=== PATIENT | male | born 1980 | race Two or more races ===

== ENCOUNTER 2022-02-01 10:52 | Emergency (ER) | payer SELFPAY ==
[2022-02-01] MEDS ORDERED: ONDANSETRON HCL 4 MG/2 ML VIAL IV ONE (11:45)
[2022-02-01] MEDS ORDERED: KETOROLAC TROMETH 30 MG/ML 1ML VIAL IV ONE ×2 (11:45)
[2022-02-01] MEDS ORDERED: SODIUM CHLORIDE 0.9% 1,000 ML IV ONE ×2 (11:45→14:00)
[2022-02-01 12:02] LABS: Urine Amorphous Crystal FEW /hpf (None Seen); Urine Bacteria NONE SEEN /hpf (None Seen); Urine Blood Negative /uL (Negative); Urine Mucus FEW (None Seen); Urine Specific Gravity 1.026 (1.001-1.035); Urine WBC 11 /hpf (0 - 3)
[2022-02-01 12:03] LABS: Basophils # (auto) 0.1 10 ^3/uL (0-0.2); Eosinophils # (auto) 0.2 10 ^3/uL (0-0.8); Eosinophils % (auto) 2.9 % (0.0-7.0); Hemoglobin 15.1 g/dL (13.5-17.5); Lymphocytes # (auto) 2.3 10 ^3/uL (0.4-5.4); Lymphocytes % (auto) 31.2 % (10.0-50.0); Mean Corpuscular Hemoglobin 31.4 pg (28.0-32.0); Mean Corpuscular Hgb Conc. 33.6 g/dL (32.0-36.0); Mean Corpuscular Volume 93.5 fL (80.0-100.0); Monocytes # (auto) 0.6 10 ^3/uL (0-1.3); Monocytes % (auto) 8.7 % (0.0-12.0); Neutrophils # (auto) 4.1 10 ^3/uL (1.6-8.6); Neutrophils % (auto) 56.2 % (37.0-80.0); Nucleated Red Blood Cells % 0.1 %; Red Blood Cells 4.82 10^6/uL (4.5-5.90); Red Cell Distribution Width 13.6 % (11.8-14.3); White Blood Cell 7.3 10^3/uL (4.4-10.8)
[2022-02-01 12:23] LABS: Albumin 3.8 g/dL (3.4-5.0); BUN/Creatinine Ratio 16.8; Calcium 8.8 mg/dL (8.5-10.1); Potassium 4.3 mmol/L (3.5-5.1)
[2022-02-01 12:25] LABS: Bilirubin, Total 0.6 mg/dL (0.2-1.0); Total Protein 7.1 g/dL (6.4-8.2)
[2022-02-01] MEDS ORDERED: MORPHINE SULFATE 4 MG/ML SYR/VIAL IV ONE (13:15)
[2022-02-01 14:51] VITALS: BP 107/61
[2022-02-01] MEDS ORDERED: TRAM-297 PO (15:02)
[2022-02-01] MEDS ORDERED: TAM04C PO (15:02)
== END 2022-02-01 15:07 | disposition home or self-care (01) ==
LOC: ER 10:52
DX: N20.0 Calculus of kidney (principal); F17.210 Nicotine dependence, cigarettes, uncomplicated; F12.10 Cannabis abuse, uncomplicated
CPT/HCPCS: 36415; 74176; 80053; 81001; 85025; 96361; 96374; 96375; 99284; J1885; J2270; J2405; J7030

== ENCOUNTER 2024-08-01 12:37 | Inpatient (IN) | payer BC, OTHER ==
[~2024-08-01] VITALS: Ht 180.3 cm; Wt 75.8 kg
[~2024-08-01 12:37] MED LIST: TAMS-35 PO; TRAM-297 PO
--- NOTE | 2024-08-01 13:17 | ED.PDOC ---
History of Present Illness HPI Comments 43M presents to the ER w/ no prior Hx associated to the c/c of of left sided numbness. Pt reports that he woke up at 0500 w/ vertigo and fell out of the bed and went to the bathroom due from him not feeling well. PMHx of Eczema and Ortho Sx. Denies chills, fever, N/V/D, SOB, CP or other associated symptoms, modifiers or recent injuries or sick contact at this time. Chief Complaint: Left Sided Weakness Time Seen by MD: 12:35 Primary Care Provider: NONE Reviewed Notes: Nurses Notes, Medications, Allergies Allergies: Coded Allergies: NO KNOWN ALLERGIES (Unverified , 08/01/24) Home Meds Active Scripts Tramadol Hcl (Ultram) 50 Mg Tab, 50 MG PO TID, #20 TAB Prov:MAYKEL DUMONT 02/01/22 Tamsulosin Hcl (Flomax) 0.4 Mg Cap, 0.4 MG PO DAILY, #20 CAP Prov:MAYKEL DUMONT 02/01/22 Information Source: Patient, Friend Mode of Arrival: Wheelchair Severity: Moderate Timing: Hours Duration: Since onset, Hours Prehospital treatment: None Past Medical History PAST MEDICAL HISTORY: Kidney Stones Past Medical History (Other): Eczema Surgical History (Other): Ortho Sx Family History Family History: Reviewed,noncontributory to illness, Unknown Social History Smoker: Non-Smoker Alcohol: Denies ETOH Use Drugs: Denies Drug Use Lives In: Home Constitutional: denies: chills, diaphoresis, fatigue, fever, malaise, sweats, weakness, others EENTM: denies: blurred vision, double vision, ear bleeding, ear discharge, ear drainage, ear pain, ear ringing, eye pain, eye redness, hearing loss, mouth pain, mouth swelling, nasal discharge, nose bleeding, nose congestion, nose pain, photophobia, tearing, throat pain, throat swelling, voice changes, others Respiratory: denies: cough, hemoptysis, orthopnea, SOB at rest, shortness of breath, SOB with excertion, stridor, wheezing, others Cardiovascular: denies: chest pain, dizzy spells, diaphoresis, Dyspnea on exertion, edema, irregular heart beat, left arm pain, lightheadedness, palpitations, PND, syncope, others Gastrointestinal: denies: abdomen distended, abdominal pain, blood streaked bowels, constipated, diarrhea, dysphagia, difficulty swallowing, hematemesis, melena, nausea, poor appetite, poor fluid intake, rectal bleeding, rectal pain, vomiting, others Genitourinary: denies: burning, dysuria, flank pain, frequency, hematuria, incontinence, penile discharge, penile sore, pain, testicle pain, testicle sw elling, urgency, others Neurological: reports: dizziness, left sided numbness; denies: fainting, headache, left sided weakness, numbness, paresthesia, pre-existing deficit, right sided numbness, right sided weakness, seizure, speech problems, tingling, tremors, weakness, others Musculoskeletal: denies: back pain, gout, joint pain, joint swelling, muscle pain, muscle stiffness, neck pain, others Integumetry: denies: bruises, change in color, change in hair/nails, dryness, laceration, lesions, lumps, rash, wounds, others Allergic/Immunocompromised: denies: Difficulty Healing, Frequent Infections, Hives, Itching, others Hematologic/Lymphatic: denies: anemia, blood clots, easy bleeding, easy bruising, swollen glands, others Endocrine: denies: excessive hunger, excessive sweating, excessive thirst, excessive urination, flushing, intolerance to cold, intolerance to heat, unexplained weight gain, unexplained weight loss, others Psychiatric: denies: anxiety, bipolar disorder, depression, hopeless, panic disorder, schizophrenia, sleepless, suicidal, others All Other Systems: Reviewed and Negative Physical Exam General Appearance: No Apparent Distress, Normal HEENT: Normal ENT Inspection, Pharynx Normal, TMs Normal Neck: Full Range of Motion, Non-Tender, Normal, Normal Inspection Respiratory: Chest Non-Tender, Lungs Clear, No Accessory Muscle Use, No Respiratory Distress, Normal Breath Sounds Cardiovascular: No Edema, No JVD, No Murmur, No Gallop, Normal Peripheral Pulses, Regular Rate/Rhythm Breast Exam: Deferred Gastrointestinal: No Organomegaly, Non Tender, No Pulsatile Mass, Normal Bowel Sounds, Soft Genitalia: Deferred Pelvic: Deferred Rectal: Deferred Extremities: No calf tenderness, Normal capillary refill, Normal inspection, Normal range of motion, Non-tender, No pedal edema Musculoskeletal : Apperance: Normal Neurologic: Alert, golf course laborer II-XII nml as Tested, No Motor Deficits, Normal Affect, Normal Mood, No Sensory Deficits Cerebellar Function: Normal Reflexes: Normal Skin: Dry, Normal Color, Warm Lymphatic: No Adenopathy Was a procedure done? Was a procedure done?: No Differential Dx Considerations may include: CVA, TIA, mass occupying lesion, mononeuropathy X-Ray, Labs, Meds, VS Vital Signs Date Time Temp Pulse Resp B/P (MAP) Pulse Ox O2 Delivery O2 Flow Rate FiO2 08/01/24 15:23 75 16 93/63 (73) 97 08/01/24 12:50 98.5 79 17 115/76 (89) 100 08/01/24 12:44 75 Lab Test 08/01/24 14:24 08/01/24 13:19 08/01/24 12:41 Range/Units Troponin I High Sensitivity 3 L 3 L </=54 ng/L White Blood Count 11.1 H 4.4-10.8 10^3/uL Red Blood Count 5.07 4.5-5.90 10^6/uL Hemoglobin 15.7 13.5-17.5 g/dL Hematocrit 46.2 41.0-53.0 % Mean Corpuscular Volume 91.1 80.0-100.0 fL Mean Corpuscular Hemoglobin 31.0 28.0-32.0 pg Mean Corpuscular Hemoglobin Concent 34.1 32.0-36.0 g/dL Red Cell Distribution Width 13.7 11.8-14.3 % Platelet Count 230 140-450 10^3/uL Mean Platelet Volume 8.3 6.9-10.8 fL Neutrophils (%) (Auto) 81.8 H 37.0-80.0 % Lymphocytes (%) (Auto) 13.3 10.0-50.0 % Monocytes (%) (Auto) 4.1 0.0-12.0 % Eosinophils (%) (Auto) 0.4 0.0-7.0 % Basophils (%) (Auto) 0.4 0.0-2.0 % Neutrophils # (Auto) 9.1 H 1.6-8.6 10 ^3/uL Lymphocytes # (Auto) 1.5 0.4-5.4 10 ^3/uL Monocytes # (Auto) 0.5 0-1.3 10 ^3/uL Eosinophils # (Auto) 0 0-0.8 10 ^3/uL Basophils # (Auto) 0 0-0.2 10 ^3/uL Nucleated Red Blood Cells 0.1 % Prothrombin Time 10.5 9.3-11.8 sec Prothrombin Time INR 0.97 0.9-1.15 Activated Partial Thromboplast Time 28.9 24.5-34.5 SEC Sodium Level 141 136-145 mmol/L Potassium Level 3.8 3.5-5.1 mmol/L Chloride Level 108 H 98-107 mmol/L Carbon Dioxide Level 24 20-31 mmol/L Anion Gap 9 5-15 Blood Urea Nitrogen 18 9-23 mg/dL Creatinine 0.93 0.700-1.30 mg/dL Glomerular Filtration Rate Calc 104 >90 mL/min BUN/Creatinine Ratio 19.4 10.0-20.0 Serum Glucose 116 H 74-106 mg/dL Calcium Level 10.1 8.7-10.4 mg/dL Magnesium Level 1.7 1.6-2.6 mg/dL Total Bilirubin 0.7 0.2-1.0 mg/dL Aspartate Amino Transferase (AST) 21 13-40 U/L Alanine Aminotransferase (ALT) 23 7-40 U/L Alkaline Phosphatase 66 46-116 U/L B-Type Natriuretic Peptide 14.38 0-100 pg/mL Total Protein 7.3 5.7-8.2 g/dL Albumin 4.5 3.2-4.8 g/dL POC Glucose 117 H 70-106 mg/dl X-Ray, Labs, Meds, VS Comment This is a 43-year-old gentleman who comes in with symptoms consistent with CVA with left hemiparesis. Since his last well-known time was approximately 5:00 a.m., patient is not a candidate for thrombolytics. His blood pressure was not controlled due to permissive hypertension. I recommended hospitalization. He agreed. Time of 1ST Reevaluation: 13:05 Reevaluation 1ST: Unchanged Patient Education/Counseling: Diagnosis, Treatment, Prognosis Family Education/Counseling: Diagnosis, Treatment, Prognosis Departure 1 Departure Time of Disposition: 17:10 Impression: Primary Impression: Acute CVA (cerebrovascular accident) Disposition: 09 ADMITTED INPATIENT Admit to: Tele Condition: Fair Critical Care Note Critical Care Time?: Yes (45 min-critical care time only) Critical care comment: CRITICAL CARE TIME: 45 minutes Treatments/Evaluations: Close monitoring and treatment of unstable vital signs, cardiorespiratory, and neurologic status, while maintaining tight balance of fluid, respiratory, and cardiac interventions. This time includes discussing the case with the patient and the patients family. This time does not include all procedures stated elsewhere in this record. This time also includes reviewing old records, labs and radiological studies. This time includes examining and re- examining the patient. Additionally, this time also includes arranging care with admitting and consulting physicians. Stability Stability form required: No Heart Score Heart Score: Heart Score Response (Comments) Value History N/A 0 EKG N/A 0 Age N/A 0 Risk Factors N/A 0 Troponin N/A 0 Total 0 I personally scribed for JEFFRY SHEPHERD MD ([email or web address]) on 08/01/24 at 13:17. Electronically submitted by Jaguar Thompson ([email or web address]). JEFFRY SHEPHERD MD Aug 01, 2024 13:17
--- NOTE | 2024-08-01 13:27 | DVH ---
CLINICAL INFORMATION: 43 years old, Male; left sided numbness. TECHNIQUE: Axial imaging was obtained through the brain without contrast. Coronal and sagittal refor matted images were obtained, reviewed, and stored. Images were reviewed in brain and bone windows. A ll CT scans at this medical facility are performed using dose modulation techniques as appropriate to a performed exam including the following: Automated exposure control was utilized; adjustment of the MA and/or KV according to patient size; and use of iterative reconstruction technique. CTDIvol = 53.73 mGy DLP = 970.56 mGy-cm COMPARISON: None FINDINGS: There is no acute intracranial hemorrhage or extraaxial fluid collection. No mass effect o r midline shift. The ventricles and sulci are within normal limits in size for age. Basal cisterns a re patent. The calvarium is unremarkable. Paranasal sinuses and mastoid air cells are clear. IMPRESSION: 1. No acute intracranial hemorrhage. 2. No CT evidence of acute intracranial abnormality.
[2024-08-01 13:58] LABS: Basophils # (auto) 0 10 ^3/uL (0-0.2); Basophils % (auto) 0.4 % (0.0-2.0); Eosinophils # (auto) 0 10 ^3/uL (0-0.8); Eosinophils % (auto) 0.4 % (0.0-7.0); Hematocrit 46.2 % (41.0-53.0); Hemoglobin 15.7 g/dL (13.5-17.5); Lymphocytes # (auto) 1.5 10 ^3/uL (0.4-5.4); Lymphocytes % (auto) 13.3 % (10.0-50.0); Mean Corpuscular Hgb Conc. 34.1 g/dL (32.0-36.0); Mean Corpuscular Volume 91.1 fL (80.0-100.0); Monocytes # (auto) 0.5 10 ^3/uL (0-1.3); Monocytes % (auto) 4.1 % (0.0-12.0); Neutrophils # (auto) 9.1 10 ^3/uL (1.6-8.6); Neutrophils % (auto) 81.8 % (37.0-80.0); Nucleated Red Blood Cells % 0.1 %; Platelet Count (auto) 230 10^3/uL (140-450); Red Blood Cells 5.07 10^6/uL (4.5-5.90); Red Cell Distribution Width 13.7 % (11.8-14.3); White Blood Cell 11.1 10^3/uL (4.4-10.8)
[2024-08-01 14:11] LABS: Alanine Aminotransferase 23 U/L (7-40); Albumin 4.5 g/dL (3.2-4.8); Alkaline Phosphatase 66 U/L (46-116); Anion Gap 9 (5-15); Aspartate Aminotransferase 21 U/L (13-40); BUN/Creatinine Ratio 19.4 (10.0-20.0); Blood Urea Nitrogen 18 mg/dL (9-23); Calcium 10.1 mg/dL (8.7-10.4); Carbon Dioxide 24 mmol/L (20-31); Magnesium 1.7 mg/dL (1.6-2.6); Potassium 3.8 mmol/L (3.5-5.1); Sodium 141 mmol/L (136-145)
[2024-08-01 14:12] LABS: Bilirubin, Total 0.7 mg/dL (0.2-1.0); Total Protein 7.3 g/dL (5.7-8.2)
--- NOTE | 2024-08-01 14:12 | DVH ---
CHEST RADIOGRAPH Indication: left sided numbness Technique: Single frontal view of the chest was obtained Comparison: None FINDINGS: Lines and Tubes: None Lungs: No focal consolidation. Mild hyperinflation of the lungs. 7 mm nodular density of the left low er lung zone. Pleura: No effusion. No pneumothorax. Cardiomediastinal contours: Unremarkable Bones: No acute osseous abnormality. IMPRESSION: No acute cardiopulmonary disease. 7 mm nodular density of the left lower lung zone. Non emergent CT chest should be considered for furt her evaluation
[2024-08-01 14:23] LABS: INR 0.97 (0.9-1.15); Partial Thromboplastin Time 28.9 SEC (24.5-34.5); Prothrombin Time 10.5 sec (9.3-11.8)
[2024-08-01 14:31] LABS: Chloride 108 mmol/L (98-107); Glucose 116 mg/dL (74-106)
[2024-08-01] MEDS: ASPirin 325 MG TAB PO ONE (15:58)
--- NOTE | 2024-08-01 17:04 | ECG ---
[facility] Test Date: 2024-08-01 Test Time: 12:44:47 Pat Name: SURI HALL Department: ER Room: Gender: M Delinquent Notice Machine Operator: RICHELLE : 1980 Requested By: JEFFRY SHEPHERD Order Number: [id number] Reading MD: Measurements Intervals [place] Rate: 75 P: 0 ND: 0 QRS: 59 QRSD: 106 T: 44 QT: 407 QTc: 455 Interpretive Statements Atrial fibrillation Anteroseptal infarct, old ST elevation, consider inferior injury Artifact in lead(s) I,II,III,aVR,aVL,aVF,V1,V2,V3,V4,V5,V6 Please click the below link to view image of tracing.
[2024-08-01 19:33] VITALS: BP 99/62; PULSE 78; RESP 20; TEMP 98.3; O2SAT 99
--- NOTE | 2024-08-01 20:13 | DVHINCON2 ---
Date of service: Aug 01, [address] Culp Reason for Consultation Left-sided numbness History of Present Illness 08/01/24 43M presents to the ER w/ no prior Hx associated to the c/c of of left sided numbness. Pt reports that he woke up at 0500 w/ vertigo and fell out of the bed and went to the bathroom due from him not feeling well. PMHx of Eczema and Ortho Sx. Denies chills, fever, N/V/D, SOB, CP or other associated symptoms, modifiers or recent injuries or sick contact at this time. Chief Complaint: Left Sided Weakness WBC/HB/PLT/MCV, , 11.1/515.7/230/91.1 CMP, 08/01/2024: Unremarkable CT head, 08/01/2024: 1. No acute intracranial hemorrhage. 2. No CT evidence of acute intracranial abnormality Kidney Stones Eczema Ortho Sx Reviewed,noncontributory to illness, Unknown Smoker: Non-Smoker Alcohol: Denies ETOH Use Drugs: Denies Drug Use Lives In: Home Allergies: Coded Allergies: NO KNOWN ALLERGIES (Unverified , 08/01/24) Home Meds Active Scripts Tramadol Hcl (Ultram) 50 Mg Tab, 50 MG PO TID, #20 TAB Prov:MAYKEL DUMONT 02/01/22 Tamsulosin Hcl (Flomax) 0.4 Mg Cap, 0.4 MG PO DAILY, #20 CAP Prov:MAYKEL DUMONT 02/01/22 Vital Signs Vital Signs Date Time Temp Pulse Resp B/P (MAP) Pulse Ox O2 Delivery O2 Flow Rate FiO2 08/01/24 19:33 98.3 78 20 99/62 (74) 99 98.3 08/01/24 19:31 Room Air Labs/Diagnostic Data Labs Test 08/01/24 14:24 08/01/24 13:19 08/01/24 12:41 Range/Units Troponin I High Sensitivity 3 L </=54 ng/L White Blood Count 11.1 H 4.4-10.8 10^3/uL Red Blood Count 5.07 4.5-5.90 10^6/uL Hemoglobin 15.7 13.5-17.5 g/dL Hematocrit 46.2 41.0-53.0 % Mean Corpuscular Volume 91.1 80.0-100.0 fL Mean Corpuscular Hemoglobin 31.0 28.0-32.0 pg Mean Corpuscular Hemoglobin Concent 34.1 32.0-36.0 g/dL Red Cell Distribution Width 13.7 11.8-14.3 % Platelet Count 230 140-450 10^3/uL Mean Platelet Volume 8.3 6.9-10.8 fL Neutrophils (%) (Auto) 81.8 H 37.0-80.0 % Lymphocytes (%) (Auto) 13.3 10.0-50.0 % Monocytes (%) (Auto) 4.1 0.0-12.0 % Eosinophils (%) (Auto) 0.4 0.0-7.0 % Basophils (%) (Auto) 0.4 0.0-2.0 % Neutrophils # (Auto) 9.1 H 1.6-8.6 10 ^3/uL Lymphocytes # (Auto) 1.5 0.4-5.4 10 ^3/uL Monocytes # (Auto) 0.5 0-1.3 10 ^3/uL Eosinophils # (Auto) 0 0-0.8 10 ^3/uL Basophils # (Auto) 0 0-0.2 10 ^3/uL Nucleated Red Blood Cells 0.1 % Prothrombin Time 10.5 9.3-11.8 sec Prothrombin Time INR 0.97 0.9-1.15 Activated Partial Thromboplast Time 28.9 24.5-34.5 SEC Sodium Level 141 136-145 mmol/L Potassium Level 3.8 3.5-5.1 mmol/L Chloride Level 108 H 98-107 mmol/L Carbon Dioxide Level 24 20-31 mmol/L Anion Gap 9 5-15 Blood Urea Nitrogen 18 9-23 mg/dL Creatinine 0.93 0.700-1.30 mg/dL Glomerular Filtration Rate Calc 104 >90 mL/min BUN/Creatinine Ratio 19.4 10.0-20.0 Serum Glucose 116 H 74-106 mg/dL Calcium Level 10.1 8.7-10.4 mg/dL Magnesium Level 1.7 1.6-2.6 mg/dL Total Bilirubin 0.7 0.2-1.0 mg/dL Aspartate Amino Transferase (AST) 21 13-40 U/L Alanine Aminotransferase (ALT) 23 7-40 U/L Alkaline Phosphatase 66 46-116 U/L B-Type Natriuretic Peptide 14.38 0-100 pg/mL Total Protein 7.3 5.7-8.2 g/dL Albumin 4.5 3.2-4.8 g/dL POC Glucose 117 H 70-106 mg/dl SAMUEL WEINER MD Aug 01, 2024 20:13
[2024-08-01] MEDS ORDERED: SODIUM CHLORIDE 0.9% 1,000 ML IV ONE (20:45)
[2024-08-01] MEDS ORDERED: ONDANSETRON HCL 4 MG/2 ML VIAL IV PRN (21:00)
[2024-08-01] MEDS ORDERED: ACETAMINOPHEN 325 MG TAB PO PRN (21:00)
--- NOTE | 2024-08-01 21:34 | DVHHP2 ---
Review of Systems Allergies: Coded Allergies: NO KNOWN ALLERGIES (Unverified , 08/01/24) Medications Current Medications Medications Dose Ordered Sig/Shirley Route Start Time Stop Time Status Last Admin Dose Admin Aspirin 162 mg DAILY PO 08/02/24 10:00 Atorvastatin Calcium 10 mg HS PO 08/01/24 22:00 Ondansetron HCl 4 mg Q4HP PRN IV 08/01/24 21:00 Enoxaparin Sodium 40 mg DAILY SC 08/02/24 10:00 Acetaminophen 650 mg Q6HP PRN PO 08/01/24 21:00 Exam Vital Signs Vital Signs Date Time Temp Pulse Resp B/P (MAP) Pulse Ox O2 Delivery O2 Flow Rate FiO2 08/01/24 19:33 98.3 78 20 99/62 (74) 99 98.3 08/01/24 19:31 Room Air Labs/Xrays Labs Test 08/01/24 14:24 08/01/24 13:19 08/01/24 12:41 Range/Units Troponin I High Sensitivity 3 L </=54 ng/L White Blood Count 11.1 H 4.4-10.8 10^3/uL Red Blood Count 5.07 4.5-5.90 10^6/uL Hemoglobin 15.7 13.5-17.5 g/dL Hematocrit 46.2 41.0-53.0 % Mean Corpuscular Volume 91.1 80.0-100.0 fL Mean Corpuscular Hemoglobin 31.0 28.0-32.0 pg Mean Corpuscular Hemoglobin Concent 34.1 32.0-36.0 g/dL Red Cell Distribution Width 13.7 11.8-14.3 % Platelet Count 230 140-450 10^3/uL Mean Platelet Volume 8.3 6.9-10.8 fL Neutrophils (%) (Auto) 81.8 H 37.0-80.0 % Lymphocytes (%) (Auto) 13.3 10.0-50.0 % Monocytes (%) (Auto) 4.1 0.0-12.0 % Eosinophils (%) (Auto) 0.4 0.0-7.0 % Basophils (%) (Auto) 0.4 0.0-2.0 % Neutrophils # (Auto) 9.1 H 1.6-8.6 10 ^3/uL Lymphocytes # (Auto) 1.5 0.4-5.4 10 ^3/uL Monocytes # (Auto) 0.5 0-1.3 10 ^3/uL Eosinophils # (Auto) 0 0-0.8 10 ^3/uL Basophils # (Auto) 0 0-0.2 10 ^3/uL Nucleated Red Blood Cells 0.1 % Prothrombin Time 10.5 9.3-11.8 sec Prothrombin Time INR 0.97 0.9-1.15 Activated Partial Thromboplast Time 28.9 24.5-34.5 SEC Sodium Level 141 136-145 mmol/L Potassium Level 3.8 3.5-5.1 mmol/L Chloride Level 108 H 98-107 mmol/L Carbon Dioxide Level 24 20-31 mmol/L Anion Gap 9 5-15 Blood Urea Nitrogen 18 9-23 mg/dL Creatinine 0.93 0.700-1.30 mg/dL Glomerular Filtration Rate Calc 104 >90 mL/min BUN/Creatinine Ratio 19.4 10.0-20.0 Serum Glucose 116 H 74-106 mg/dL Calcium Level 10.1 8.7-10.4 mg/dL Magnesium Level 1.7 1.6-2.6 mg/dL Total Bilirubin 0.7 0.2-1.0 mg/dL Aspartate Amino Transferase (AST) 21 13-40 U/L Alanine Aminotransferase (ALT) 23 7-40 U/L Alkaline Phosphatase 66 46-116 U/L B-Type Natriuretic Peptide 14.38 0-100 pg/mL Total Protein 7.3 5.7-8.2 g/dL Albumin 4.5 3.2-4.8 g/dL POC Glucose 117 H 70-106 mg/dl Assessment/Plan My Orders Orders - SHENG LANDRUMRitchie Procedure Category Date Status Time Aspirin Tablet PHA 08/02/24 In Process 10:00 Atorvastatin (Lipitor) PHA 08/01/24 In Process 22:00 Brain Head Wo Contrast MRI 08/01/24 Logged 21:00 Basic Metabolic Panel LAB 08/02/24 Verified 04:00 Admit ADMIT 08/01/24 Transmitted 21:00 Ondansetron Hcl PHA 08/01/24 In Process (Zofran) 21:00 Enoxaparin Sodium PHA 08/02/24 In Process (Lovenox) 10:00 Cardiac DIET 08/02/24 Transmitted Diet-2gna,Lofat,Lochol Breakfast Condition: Stable TOI 08/01/24 In Process 21:00 Acetaminophen Tablet PHA 08/01/24 In Process (Tylenol Tablet) 21:00 Bedrest With Bathroom TOI 08/01/24 In Process Privileg 21:00 SHENG LANDRUM [facility] Aug 01, 2024 21:34
[2024-08-01] MEDS ORDERED: ATORVASTATIN 20 MG TAB PO SCH (22:00)
--- NOTE | 2024-08-01 23:07 | DVHHP2 ---
History of Present Illness Reason for Visit: Numbness History of Present Illness 43-year-old male presents for evaluation of numbness. Patient presents with a one day history of left-sided upper extremity and facial numbness. Patient states the symptoms started around five in the morning. He also reports mild dizziness. No slurred speech. No blurred vision. Denies cardiac or respiratory complaints. Past Medical History BPH and kidney stones Past Surgical History Denies Family History Noncontributory Smoke: No ALCOHOL: none Drugs: None Lives: with Family Review of Systems Review of Systems Review of systems are currently negative otherwise addressed in HPI. Allergies: Coded Allergies: NO KNOWN ALLERGIES (Unverified , 08/01/24) Exam Vital Signs Vital Signs Date Time Temp Pulse Resp B/P (MAP) Pulse Ox O2 Delivery O2 Flow Rate FiO2 08/01/24 19:33 98.3 78 20 99/62 (74) 99 98.3 08/01/24 19:31 Room Air Exam Gen: 43-year-old male in no apparent distress. Skin: Warm, dry, normal color and texture, no rash. HEENT: Normocephalic atraumatic, mucous membranes moist and pink. Neck: Cervical and supraclavicular nodes normal without enlargement, trachea is midline, thyroid gland is normal without masses. Pulmonary: Clear to auscultation and percussion bilaterally. Cardiac: Regular rate and rhythm. No murmur Abdomen: Soft, nontender, nondistended, bowel sounds present all 4 quadrants, no guarding, no rigidity, no organomegaly. Extremities: No cyanosis, clubbing, no edema Neuro: Cranial nerves II through XII grossly intact, normal affect and speech, no focal motor deficits. Labs/Xrays ORDERING PHYSICIAN: JEFFRY SHEPHERD MD PROCEDURE(s): CXR1 - CHEST XRAY 1 VIEW REASON: left sided numbness ORDER NUMBER(s): [id number], ACCESSION NUMBER(s): [id number] CHEST RADIOGRAPH Indication: left sided numbness Technique: Single frontal view of the chest was obtained Comparison: None FINDINGS: Lines and Tubes: None Lungs: No focal consolidation. Mild hyperinflation of the lungs. 7 mm nodular density of the left lower lung zone. Pleura: No effusion. No pneumothorax. Cardiomediastinal contours: Unremarkable Bones: No acute osseous abnormality. IMPRESSION: No acute cardiopulmonary disease. 7 mm nodular density of the left lower lung zone. Non emergent CT chest should be considered for further evaluation RING PHYSICIAN: JEFFRY SHEPHERD MD PROCEDURE(s): CTH - STROKE CTH REASON: left sided numbness ORDER NUMBER(s): [id number], ACCESSION NUMBER(s): [id number] CLINICAL INFORMATION: 43 years old, Male; left sided numbness. TECHNIQUE: Axial imaging was obtained through the brain without contrast. Coronal and sagittal reformatted images were obtained, reviewed, and stored. Images were reviewed in brain and bone windows. All CT scans at this medical facility are performed using dose modulation techniques as appropriate to a performed exam including the following: Automated exposure control was utilized; adjustment of the MA and/or KV according to patient size; and use of iterative reconstruction technique. CTDIvol = 53.73 mGy DLP = 970.56 mGy-cm COMPARISON: None FINDINGS: There is no acute intracranial hemorrhage or extraaxial fluid collection. No mass effect or midline shift. The ventricles and sulci are within normal limits in size for age. Basal cisterns are patent. The calvarium is unremarkable. Paranasal sinuses and mastoid air cells are clear. IMPRESSION: 1. No acute intracranial hemorrhage. 2. No CT evidence of acute intracranial abnormality. Labs Test 08/01/24 14:24 08/01/24 13:19 08/01/24 12:41 Range/Units Troponin I High Sensitivity 3 L </=54 ng/L White Blood Count 11.1 H 4.4-10.8 10^3/uL Red Blood Count 5.07 4.5-5.90 10^6/uL Hemoglobin 15.7 13.5-17.5 g/dL Hematocrit 46.2 41.0-53.0 % Mean Corpuscular Volume 91.1 80.0-100.0 fL Mean Corpuscular Hemoglobin 31.0 28.0-32.0 pg Mean Corpuscular Hemoglobin Concent 34.1 32.0-36.0 g/dL Red Cell Distribution Width 13.7 11.8-14.3 % Platelet Count 230 140-450 10^3/uL Mean Platelet Volume 8.3 6.9-10.8 fL Neutrophils (%) (Auto) 81.8 H 37.0-80.0 % Lymphocytes (%) (Auto) 13.3 10.0-50.0 % Monocytes (%) (Auto) 4.1 0.0-12.0 % Eosinophils (%) (Auto) 0.4 0.0-7.0 % Basophils (%) (Auto) 0.4 0.0-2.0 % Neutrophils # (Auto) 9.1 H 1.6-8.6 10 ^3/uL Lymphocytes # (Auto) 1.5 0.4-5.4 10 ^3/uL Monocytes # (Auto) 0.5 0-1.3 10 ^3/uL Eosinophils # (Auto) 0 0-0.8 10 ^3/uL Basophils # (Auto) 0 0-0.2 10 ^3/uL Nucleated Red Blood Cells 0.1 % Prothrombin Time 10.5 9.3-11.8 sec Prothrombin Time INR 0.97 0.9-1.15 Activated Partial Thromboplast Time 28.9 24.5-34.5 SEC Sodium Level 141 136-145 mmol/L Potassium Level 3.8 3.5-5.1 mmol/L Chloride Level 108 H 98-107 mmol/L Carbon Dioxide Level 24 20-31 mmol/L Anion Gap 9 5-15 Blood Urea Nitrogen 18 9-23 mg/dL Creatinine 0.93 0.700-1.30 mg/dL Glomerular Filtration Rate Calc 104 >90 mL/min BUN/Creatinine Ratio 19.4 10.0-20.0 Serum Glucose 116 H 74-106 mg/dL Calcium Level 10.1 8.7-10.4 mg/dL Magnesium Level 1.7 1.6-2.6 mg/dL Total Bilirubin 0.7 0.2-1.0 mg/dL Aspartate Amino Transferase (AST) 21 13-40 U/L Alanine Aminotransferase (ALT) 23 7-40 U/L Alkaline Phosphatase 66 46-116 U/L B-Type Natriuretic Peptide 14.38 0-100 pg/mL Total Protein 7.3 5.7-8.2 g/dL Albumin 4.5 3.2-4.8 g/dL POC Glucose 117 H 70-106 mg/dl Assessment/Plan Assessment/Plan Assessment Rule out CVA Left-sided numbness Plan Admit the patient to [facility] to the hospitalist neurology consultation MRI of the brain pending Aspirin/atorvastatin Continue treatment per orders. Plan discussed with: Patient My Orders Orders - SHENG LANDRUM Procedure Category Date Status Time Brain Head Wo Contrast MRI 08/01/24 Logged 21:00 Admit ADMIT 08/01/24 Transmitted 21:00 Date of Service: Aug 01, 2024 Billing Provider: SHENG LANDRUM Common Visit Codes: [id number] INP/OBS CARE (HIGH) SHENG LANDRUM Aug 01, 2024 23:07
[2024-08-02] MEDS ORDERED: ASPirin 81 mg TAB PO SCH (10:00)
[2024-08-02] MEDS ORDERED: ENOXAPARIN SOD 40 MG/0.4 ML SYRINGE SC SCH (10:00)
== END 2024-08-01 21:20 | disposition left against medical advice (07) | DRG 93 ==
LOC: ER 12:37 → OVERFLOW 21:00
PROVIDERS: ADMIT Nurse Practitioner; ATTEND Nurse Practitioner
DX: R20.0 Anesthesia of skin (principal); N40.0 Benign prostatic hyperplasia without lower urinary tract symptoms; Z53.29 Procedure and treatment not carried out because of patient's decision for other reasons; Z87.442 Personal history of urinary calculi
CPT/HCPCS: 36415; 70450; 71045; 80053; 82962; 83735; 83880; 84484; 85025; 85610; 85730; 93005; G0378